=== PATIENT | female | born 1950 | race Caucasian/White ===

== ENCOUNTER 2022-07-30 07:57 | Outpatient (CLI) | payer MEDICARE | END 2022-07-30 07:58 | disposition home or self-care (01) | LOC: SCSMRI 07:57 | PROVIDERS: ATTEND Family Medicine | DX: M23.92 Unspecified internal derangement of left knee (principal); S83.242A Other tear of medial meniscus, current injury, left knee, initial encounter; M67.864 Other specified disorders of tendon, left knee ==

== ENCOUNTER 2022-08-10 09:32 | Outpatient (CLI) | payer MEDICARE | END 2022-08-10 09:33 | disposition home or self-care (01) | LOC: BICMAMMO 09:32 | PROVIDERS: ATTEND Obstetrics & Gynecology | DX: N64.4 Mastodynia (principal) | CPT/HCPCS: 76642; 77066; G0279 ==